=== PATIENT | female | born 1990 | race Caucasian/White ===

== ENCOUNTER 2020-03-06 15:41 | Outpatient (CLI) | payer BC ==
--- NOTE | 2020-03-06 16:03 | RAD ---
Exam: XR Wrist 3 Lt View STANDARD HISTORY: Left wrist pain. COMPARISON: None FINDINGS: There is an osseous density just lateral to the ulnar styloid process which may represent prior avuls ion injury of the ulnar styloid process. No acute fracture or dislocation is seen. No other osseous abnormality. IMPRESSION: No acute osseous abnormality is identified.
== END 2020-03-06 15:42 | disposition home or self-care (01) ==
LOC: BICRAD 15:41
PROVIDERS: ATTEND Family Medicine
DX: M25.532 Pain in left wrist (principal)